=== PATIENT | male | born 1950 | race Caucasian/White ===

== ENCOUNTER 2020-04-03 16:53 | Inpatient (IN) ==
[2020-04-03] MEDS ORDERED: MAGNESIUM HYDROXIDE SUSP 30 ML UDCUP PO PRN (18:22)
[2020-04-03] MEDS ORDERED: LACTULOSE 20 GM/30 ML UDCUP PO PRN (18:22)
[2020-04-03] MEDS ORDERED: chlorproMAZINE 25 MG TABLET PO PRN (18:22)
[2020-04-03] MEDS ORDERED: ACETAMINOPHEN 325 MG TABLET PO PRN (18:22)
[2020-04-03] MEDS ORDERED: PROMETHAZINE INJ 25 MG in SODIUM CHLORIDE 0.9% 50 ML IV PRN (18:22)
[2020-04-03] MEDS ORDERED: MYLANTA/LIDO VISC 2:1 300 ML BOTTLE SWISH/SPIT PRN (18:22)
[2020-04-03] MEDS ORDERED: TEMAZEPAM 7.5 MG CAPSULE PO PRN (18:22)
[2020-04-03] MEDS ORDERED: chlorproMAZINE INJ 50 MG in SODIUM CHLORIDE 0.9% 100 ML IV PRN (18:22)
[2020-04-03] MEDS ORDERED: ONDANSETRON 4 MG/2 ML VIAL IV PRN (18:22)
[2020-04-03] MEDS ORDERED: ALPRAZolam 0.25 MG TABLET PO PRN (18:22)
[2020-04-03] MEDS ORDERED: BENZTROPINE 2 MG/2 ML AMP IV PRN (18:22)
[2020-04-03] MEDS ORDERED: traMADol 50 MG TABLET PO PRN (18:22)
[2020-04-03] MEDS ORDERED: diphenhydrAMINE CAP 25 MG CAPSULE PO PRN (18:22)
[2020-04-03] MEDS ORDERED: MYLANTA/LIDO VISC 2:1 300 ML BOTTLE SWISH/SWAL PRN (18:22)
[2020-04-03] MEDS ORDERED: guaiFENesin 200 MG/10 ML UDCUP PO PRN (18:22)
[2020-04-03] MEDS ORDERED: LOPERAMIDE 2 MG CAPSULE PO PRN ×2 (18:22)
[2020-04-03] MEDS ORDERED: allopurinoL 300 MG TABLET PO ONE (18:28)
[2020-04-03] MEDS ORDERED: DEXAMETHASONE 4 MG TABLET PO ONE (18:29)
[2020-04-03] MEDS: SODIUM CHLORIDE 0.9% 1,000 ML IV SCH (19:07)
[2020-04-03] MEDS ORDERED: ZOLEDRONIC ACID 4 MG in PREMIX 1 EACH IV ONE (20:00)
[2020-04-03] MEDS: ALUMINUM/MAGNES/SIMETH MAX STR 30 ML UDCUP PO PRN (20:40)
[2020-04-04] MEDS: SODIUM CHLORIDE 0.9% 1,000 ML IV SCH ×3 (03:24→20:03)
[2020-04-04 05:21] LABS: Basophils % 0.6 % (0.0-0.8); Hematocrit 38.4 VOL% (42.0-52.0); Immature Granulocytes % 6.1 %; Immature Granulocytes Absolute 0.32 #; Lymphocytes # 0.7 10*3/uL (1.4-4.0); Mean Corpuscular HGB Conc 31.3 GM/DL (32-36); Mean Corpuscular Volume 97.2 FL (87-102); Mean Platelet Volume 10.2 FL (9.6-12.0); Monocytes % 3.1 % (1.7-12.7); Neutrophils % 76.2 % (38.7-73.9); Platelet Count 255 T/CUMM (130-400); Red Blood Count 3.95 MC/CUMM (3.8-5.5); White Blood Count 5.2 T/CUMM (4-12)
[2020-04-04 05:52] LABS: Hypochromasia 1+; Lymphocytes 10 % (20-55); Ovalocytes Slight; Platelet Estimate Adequate; Segmented Neutrophils 89 % (50-85); Total Cells Counted 100
[2020-04-04 06:03] LABS: Albumin 2.6 G/DL (3.4-5.0); Bilirubin,Total 1.2 MG/DL (0.2-1.0); Calcium 11.3 MG/DL (8.5-10.1); Total Protein 6.8 G/DL (6.4-8.3)
[2020-04-04] MEDS ORDERED: oxyCODONE/ACETAMINOPHEN 5-325 MG TABLET PO PRN (08:06)
[2020-04-04] MEDS: ASPIRIN 325 MG TABLET PO SCH (08:40)
[2020-04-04] MEDS ORDERED: DEXAMETHASONE 4 MG TABLET PO SCH (09:00)
[2020-04-04] MEDS ORDERED: ETOPOSIDE 150 MG in SODIUM CHLORIDE 0.9% 500 ML IV SCH (10:00)
[2020-04-04] MEDS: GRANISETRON 1 MG/1 ML VIAL IV SCH (11:15)
[2020-04-04] MEDS: traZODone 50 MG TABLET PO PRN (20:04)
[2020-04-05] MEDS: chlorproMAZINE INJ 25 MG in SODIUM CHLORIDE 0.9% 100 ML IV PRN (02:45)
[2020-04-05] MEDS: SODIUM CHLORIDE 0.9% 1,000 ML IV SCH ×3 (04:37→19:11)
[2020-04-05 05:43] LABS: Basophils % 0.4 % (0.0-0.8); Eosinophils % 0.1 % (0.00-10.9); Hematocrit 30.8 VOL% (42.0-52.0); Hemoglobin 9.6 GM/DL (14.0-18.0); Immature Granulocytes % 1.9 %; Immature Granulocytes Absolute 0.15 #; Lymphocytes # 0.9 10*3/uL (1.4-4.0); Lymphocytes % 11.1 % (21.2-54.2); Mean Corpuscular HGB Conc 31.2 GM/DL (32-36); Mean Corpuscular Volume 97.5 FL (87-102); Mean Platelet Volume 10.4 FL (9.6-12.0); Monocytes % 7.1 % (1.7-12.7); Neutrophils % 79.4 % (38.7-73.9); Platelet Count 218 T/CUMM (130-400); Red Blood Count 3.16 MC/CUMM (3.8-5.5); Red Cell Distribution Width 16.2 % (9.3-17.3); White Blood Count 7.7 T/CUMM (4-12)
[2020-04-05 06:20] LABS: Albumin 2.2 G/DL (3.4-5.0); Bilirubin,Total 1.7 MG/DL (0.2-1.0); Calcium 8.7 MG/DL (8.5-10.1); Osmolality,Calculated 291.6 MOS/KG (273-304); Total Protein 5.5 G/DL (6.4-8.3)
[2020-04-05] MEDS ORDERED: DEXAMETHASONE 10 MG/1 ML VIAL IV ONE (08:34)
[2020-04-05] MEDS: GRANISETRON 1 MG/1 ML VIAL IV SCH ×2 (08:47→09:04)
[2020-04-05] MEDS ORDERED: CARBOplatin 400 MG in SODIUM CHLORIDE 0.9% 250 ML IV ONE (09:00)
[2020-04-05] MEDS ORDERED: DEXAMETHASONE 10 MG/1 ML VIAL IV SCH (09:00)
[2020-04-05] MEDS ORDERED: ETOPOSIDE 150 MG in SODIUM CHLORIDE 0.9% 500 ML IV ONE (09:00)
[2020-04-05] MEDS ORDERED: GRANISETRON 1 MG/1 ML VIAL IV SCH (09:00)
[2020-04-05] MEDS: ASPIRIN 325 MG TABLET PO SCH (09:04)
[2020-04-05] MEDS: DEXAMETHASONE INJ 20 MG in SODIUM CHLORIDE 0.9% 50 ML IV SCH (09:05)
[2020-04-05] MEDS: ALUMINUM/MAGNES/SIMETH MAX STR 30 ML UDCUP PO PRN (17:45)
[2020-04-06] MEDS: SODIUM CHLORIDE 0.9% 1,000 ML IV SCH (03:16)
[2020-04-06 06:14] LABS: Basophils % 0.3 % (0.0-0.8); Eosinophils % 0.1 % (0.00-10.9); Hematocrit 36.2 VOL% (42.0-52.0); Hemoglobin 11.4 GM/DL (14.0-18.0); Immature Granulocytes % 1.6 %; Immature Granulocytes Absolute 0.12 #; Lymphocytes # 0.8 10*3/uL (1.4-4.0); Lymphocytes % 11.1 % (21.2-54.2); Mean Corpuscular HGB Conc 31.5 GM/DL (32-36); Mean Corpuscular Volume 97.3 FL (87-102); Mean Platelet Volume 10.2 FL (9.6-12.0); Monocytes % 6.7 % (1.7-12.7); Neutrophils % 80.2 % (38.7-73.9); Platelet Count 219 T/CUMM (130-400); Red Blood Count 3.72 MC/CUMM (3.8-5.5); Red Cell Distribution Width 16.4 % (9.3-17.3); White Blood Count 7.5 T/CUMM (4-12)
[2020-04-06 06:40] LABS: Albumin 2.4 G/DL (3.4-5.0); Bilirubin,Total 0.8 MG/DL (0.2-1.0); Calcium 8.2 MG/DL (8.5-10.1); Osmolality,Calculated 293.4 MOS/KG (273-304); Total Protein 6.2 G/DL (6.4-8.3)
[2020-04-06] MEDS ORDERED: LANSOPRAZOLE ODT 30 MG TABLET PO SCH (10:00)
[2020-04-06] MEDS: GRANISETRON 1 MG/1 ML VIAL IV SCH (10:02)
[2020-04-06] MEDS: ASPIRIN 325 MG TABLET PO SCH (10:02)
[2020-04-06] MEDS: DEXAMETHASONE INJ 20 MG in SODIUM CHLORIDE 0.9% 50 ML IV SCH ×2 (10:23→21:58)
[2020-04-06] MEDS ORDERED: ETOPOSIDE 150 MG in SODIUM CHLORIDE 0.9% 500 ML IV ONE ×2 (12:00→15:00)
[2020-04-06] MEDS: DEXT 5% NACL 0.45% KCL 20 MEQ 20 MEQ/1,000 ML BAG IV SCH ×2 (14:26→23:22)
[2020-04-06] MEDS: OMEPRAZOLE ODT 20 MG TABLET PO SCH ×2 (14:26→21:57)
[2020-04-06] MEDS: CLOTRIMAZOLE 10 MG TROCHE PO SCH ×3 (14:26→21:57)
[2020-04-07] MEDS: DEXT 5% NACL 0.45% KCL 20 MEQ 20 MEQ/1,000 ML BAG IV SCH ×4 (00:30→22:05)
[2020-04-07 07:20] LABS: Basophils % 0.2 % (0.0-0.8); Hematocrit 35.7 VOL% (42.0-52.0); Immature Granulocytes % 1.7 %; Immature Granulocytes Absolute 0.09 #; Lymphocytes # 0.3 10*3/uL (1.4-4.0); Lymphocytes % 6.3 % (21.2-54.2); Mean Corpuscular HGB Conc 30.8 GM/DL (32-36); Mean Corpuscular Volume 98.9 FL (87-102); Monocytes % 1.7 % (1.7-12.7); Neutrophils % 90.1 % (38.7-73.9); Platelet Count 215 T/CUMM (130-400); Red Blood Count 3.61 MC/CUMM (3.8-5.5); Red Cell Distribution Width 16.4 % (9.3-17.3); White Blood Count 5.4 T/CUMM (4-12)
[2020-04-07 07:55] LABS: Albumin 2.3 G/DL (3.4-5.0); Bilirubin,Total 0.5 MG/DL (0.2-1.0); Calcium 7.5 MG/DL (8.5-10.1); Osmolality,Calculated 295.6 MOS/KG (273-304); Total Protein 6.1 G/DL (6.4-8.3)
[2020-04-07] MEDS: OMEPRAZOLE ODT 20 MG TABLET PO SCH ×2 (10:00→20:29)
[2020-04-07] MEDS: DEXAMETHASONE INJ 20 MG in SODIUM CHLORIDE 0.9% 50 ML IV SCH ×2 (10:00→20:29)
[2020-04-07] MEDS: ASPIRIN 325 MG TABLET PO SCH (10:00)
[2020-04-07] MEDS: CLOTRIMAZOLE 10 MG TROCHE PO SCH ×4 (10:00→20:29)
[2020-04-07] MEDS: GRANISETRON 1 MG/1 ML VIAL IV SCH (10:00)
[2020-04-07] MEDS: guaiFENesin 200 MG/10 ML UDCUP PO SCH ×4 (10:00→20:29)
[2020-04-08] MEDS: DEXT 5% NACL 0.45% KCL 20 MEQ 20 MEQ/1,000 ML BAG IV SCH ×3 (03:52→17:08)
[2020-04-08 06:18] LABS: Hematocrit 33.7 VOL% (42.0-52.0); Hemoglobin 10.4 GM/DL (14.0-18.0); Immature Granulocytes % 1.5 %; Immature Granulocytes Absolute 0.09 #; Lymphocytes # 0.4 10*3/uL (1.4-4.0); Lymphocytes % 7.2 % (21.2-54.2); Mean Corpuscular HGB Conc 30.9 GM/DL (32-36); Mean Corpuscular Volume 99.4 FL (87-102); Mean Platelet Volume 10.3 FL (9.6-12.0); Monocytes % 1.2 % (1.7-12.7); Neutrophils % 90.1 % (38.7-73.9); Platelet Count 188 T/CUMM (130-400); Red Blood Count 3.39 MC/CUMM (3.8-5.5); White Blood Count 5.9 T/CUMM (4-12)
[2020-04-08 07:05] LABS: Albumin 2.3 G/DL (3.4-5.0); Bilirubin,Total 0.6 MG/DL (0.2-1.0); Calcium 7.4 MG/DL (8.5-10.1); Osmolality,Calculated 289.7 MOS/KG (273-304); Total Protein 5.7 G/DL (6.4-8.3)
[2020-04-08] MEDS: guaiFENesin 200 MG/10 ML UDCUP PO SCH ×4 (08:10→20:03)
[2020-04-08] MEDS: OMEPRAZOLE ODT 20 MG TABLET PO SCH ×2 (08:10→20:03)
[2020-04-08] MEDS: ASPIRIN 325 MG TABLET PO SCH (08:11)
[2020-04-08] MEDS: CLOTRIMAZOLE 10 MG TROCHE PO SCH ×4 (08:11→20:03)
[2020-04-08] MEDS: GRANISETRON 1 MG/1 ML VIAL IV SCH (08:11)
[2020-04-08] MEDS: DEXAMETHASONE INJ 20 MG in SODIUM CHLORIDE 0.9% 50 ML IV SCH ×2 (08:11→20:04)
[2020-04-09 06:37] LABS: Hematocrit 34.6 VOL% (42.0-52.0); Hemoglobin 10.8 GM/DL (14.0-18.0); Immature Granulocytes % 0.9 %; Immature Granulocytes Absolute 0.06 #; Lymphocytes # 0.5 10*3/uL (1.4-4.0); Lymphocytes % 7.9 % (21.2-54.2); Mean Corpuscular HGB Conc 31.2 GM/DL (32-36); Mean Corpuscular Volume 97.7 FL (87-102); Mean Platelet Volume 10.4 FL (9.6-12.0); Monocytes % 0.4 % (1.7-12.7); Neutrophils % 90.8 % (38.7-73.9); Platelet Count 213 T/CUMM (130-400); Red Blood Count 3.54 MC/CUMM (3.8-5.5); Red Cell Distribution Width 15.9 % (9.3-17.3); White Blood Count 6.7 T/CUMM (4-12)
[2020-04-09 07:09] LABS: Albumin 2.6 G/DL (3.4-5.0); Bilirubin,Total 1.2 MG/DL (0.2-1.0); Calcium 7.7 MG/DL (8.5-10.1); Osmolality,Calculated 281.4 MOS/KG (273-304); Total Protein 6.3 G/DL (6.4-8.3)
[2020-04-09 07:36] LABS: Anisocytosis 2+; Band Neutrophils 1 % (0-10); Burr Cells Few; Lymphocytes 6 % (20-55); Macrocytosis 1+; Nucleated Red Blood Cells 1 (0-5); Platelet Estimate Normal; Segmented Neutrophils 93 % (50-85); Total Cells Counted 100
[2020-04-09] MEDS: DEXAMETHASONE INJ 20 MG in SODIUM CHLORIDE 0.9% 50 ML IV SCH ×2 (08:54→20:45)
[2020-04-09] MEDS: ASPIRIN 325 MG TABLET PO SCH (08:55)
[2020-04-09] MEDS: CLOTRIMAZOLE 10 MG TROCHE PO SCH ×4 (08:55→20:45)
[2020-04-09] MEDS: GRANISETRON 1 MG/1 ML VIAL IV SCH (08:55)
[2020-04-09] MEDS: OMEPRAZOLE ODT 20 MG TABLET PO SCH ×2 (08:55→20:45)
[2020-04-09] MEDS: guaiFENesin 200 MG/10 ML UDCUP PO SCH ×4 (08:55→20:45)
[2020-04-09] MEDS: DEXT 5% NACL 0.45% KCL 20 MEQ 20 MEQ/1,000 ML BAG IV SCH (16:43)
[2020-04-10 06:31] LABS: Basophils % 0.1 % (0.0-0.8); Hemoglobin 10.8 GM/DL (14.0-18.0); Immature Granulocytes % 1.8 %; Immature Granulocytes Absolute 0.12 #; Lymphocytes # 0.5 10*3/uL (1.4-4.0); Lymphocytes % 6.7 % (21.2-54.2); Mean Corpuscular HGB Conc 31.8 GM/DL (32-36); Mean Corpuscular Volume 95.8 FL (87-102); Mean Platelet Volume 10.4 FL (9.6-12.0); Monocytes % 0.4 % (1.7-12.7); Platelet Count 193 T/CUMM (130-400); Red Blood Count 3.55 MC/CUMM (3.8-5.5); Red Cell Distribution Width 15.5 % (9.3-17.3); White Blood Count 6.7 T/CUMM (4-12)
[2020-04-10 07:11] LABS: Anisocytosis 1+; Band Neutrophils 5 % (0-10); Lymphocytes 6 % (20-55); Platelet Estimate Normal; Segmented Neutrophils 87 % (50-85); Total Cells Counted 100
[2020-04-10 07:12] LABS: Hypersegmented Neutrophil Few
[2020-04-10] MEDS: GRANISETRON 1 MG/1 ML VIAL IV SCH (10:12)
[2020-04-10] MEDS: CLOTRIMAZOLE 10 MG TROCHE PO SCH ×4 (10:15→20:59)
[2020-04-10] MEDS: guaiFENesin 200 MG/10 ML UDCUP PO SCH ×4 (10:15→20:59)
[2020-04-10] MEDS: OMEPRAZOLE ODT 20 MG TABLET PO SCH ×2 (10:15→20:59)
[2020-04-10] MEDS: ASPIRIN 325 MG TABLET PO SCH (10:15)
[2020-04-10] MEDS: DEXAMETHASONE INJ 20 MG in SODIUM CHLORIDE 0.9% 50 ML IV SCH ×2 (10:19→20:59)
[2020-04-10 12:25] LABS: Calcium 7.7 MG/DL (8.5-10.1)
[2020-04-10 12:26] LABS: Albumin 2.6 G/DL (3.4-5.0); Bilirubin,Total 0.95 MG/DL (0.2-1.0); Osmolality,Calculated 274.8 MOS/KG (273-304); Total Protein 6.5 G/DL (6.4-8.3)
[2020-04-10] MEDS: DEXT 5% NACL 0.45% KCL 20 MEQ 20 MEQ/1,000 ML BAG IV SCH (16:05)
[2020-04-11 06:08] LABS: Basophils % 0.1 % (0.0-0.8); Hematocrit 32.1 VOL% (42.0-52.0); Hemoglobin 10.4 GM/DL (14.0-18.0); Immature Granulocytes % 2.1 %; Immature Granulocytes Absolute 0.15 #; Lymphocytes # 0.4 10*3/uL (1.4-4.0); Lymphocytes % 6.1 % (21.2-54.2); Mean Corpuscular HGB Conc 32.4 GM/DL (32-36); Mean Platelet Volume 11.1 FL (9.6-12.0); Monocytes % 0.4 % (1.7-12.7); Neutrophils % 91.3 % (38.7-73.9); Platelet Count 202 T/CUMM (130-400); Red Blood Count 3.38 MC/CUMM (3.8-5.5); Red Cell Distribution Width 15.8 % (9.3-17.3); White Blood Count 7.1 T/CUMM (4-12)
[2020-04-11 06:48] LABS: Band Neutrophils 1 % (0-10); Hypochromasia 1+; Lymphocytes 5 % (20-55); Ovalocytes Slight; Platelet Estimate Adequate; Segmented Neutrophils 94 % (50-85); Total Cells Counted 100
[2020-04-11 07:58] LABS: Albumin 2.6 G/DL (3.4-5.0); Bilirubin,Total 0.7 MG/DL (0.2-1.0); Calcium 7.4 MG/DL (8.5-10.1); Osmolality,Calculated 279.4 MOS/KG (273-304); Total Protein 6.4 G/DL (6.4-8.3)
[2020-04-11] MEDS: guaiFENesin 200 MG/10 ML UDCUP PO SCH ×4 (10:19→20:41)
[2020-04-11] MEDS: DEXAMETHASONE INJ 20 MG in SODIUM CHLORIDE 0.9% 50 ML IV SCH ×2 (10:19→20:41)
[2020-04-11] MEDS: CLOTRIMAZOLE 10 MG TROCHE PO SCH ×4 (10:19→20:40)
[2020-04-11] MEDS: OMEPRAZOLE ODT 20 MG TABLET PO SCH ×2 (10:19→20:40)
[2020-04-11] MEDS: ASPIRIN 325 MG TABLET PO SCH (10:19)
[2020-04-11] MEDS: DEXT 5% NACL 0.45% KCL 20 MEQ 20 MEQ/1,000 ML BAG IV SCH (14:08)
[2020-04-11] MEDS: CYCLOBENZAPRINE 10 MG TABLET PO PRN (20:40)
[2020-04-11] MEDS: traZODone 50 MG TABLET PO PRN (20:40)
[2020-04-12 06:08] LABS: Eosinophils # 0.3 10*3/uL (0.0-0.87); Eosinophils % 4.4 % (0.00-10.9); Hemoglobin 10.1 GM/DL (14.0-18.0); Immature Granulocytes % 1.3 %; Immature Granulocytes Absolute 0.08 #; Lymphocytes # 1.1 10*3/uL (1.4-4.0); Lymphocytes % 19.2 % (21.2-54.2); Mean Corpuscular HGB Conc 32.6 GM/DL (32-36); Mean Corpuscular Volume 93.7 FL (87-102); Mean Platelet Volume 10.7 FL (9.6-12.0); Monocytes % 0.7 % (1.7-12.7); Neutrophils % 74.4 % (38.7-73.9); Platelet Count 156 T/CUMM (130-400); Red Blood Count 3.31 MC/CUMM (3.8-5.5); Red Cell Distribution Width 15.6 % (9.3-17.3)
[2020-04-12 06:38] LABS: Albumin 2.5 G/DL (3.4-5.0); Bilirubin,Total 0.6 MG/DL (0.2-1.0); Calcium 7.4 MG/DL (8.5-10.1); Osmolality,Calculated 281.1 MOS/KG (273-304); Total Protein 5.8 G/DL (6.4-8.3)
[2020-04-12 06:41] LABS: Hypochromasia Slight; Ovalocytes Slight; Platelet Estimate Adequate
[2020-04-12] MEDS: ASPIRIN 325 MG TABLET PO SCH (08:52)
[2020-04-12] MEDS: guaiFENesin 200 MG/10 ML UDCUP PO SCH ×4 (08:52→20:01)
[2020-04-12] MEDS: OMEPRAZOLE ODT 20 MG TABLET PO SCH ×2 (08:52→20:01)
[2020-04-12] MEDS: CLOTRIMAZOLE 10 MG TROCHE PO SCH ×4 (08:52→20:01)
[2020-04-12] MEDS: DEXAMETHASONE INJ 20 MG in SODIUM CHLORIDE 0.9% 50 ML IV SCH ×2 (08:52→21:15)
[2020-04-12] MEDS: DEXT 5% NACL 0.45% KCL 20 MEQ 20 MEQ/1,000 ML BAG IV SCH (15:14)
[2020-04-13 06:16] LABS: Basophils % 0.3 % (0.0-0.8); Hematocrit 31.8 VOL% (42.0-52.0); Hemoglobin 10.4 GM/DL (14.0-18.0); Immature Granulocytes % 0.9 %; Immature Granulocytes Absolute 0.03 #; Lymphocytes # 0.3 10*3/uL (1.4-4.0); Lymphocytes % 8.1 % (21.2-54.2); Mean Corpuscular HGB Conc 32.7 GM/DL (32-36); Mean Platelet Volume 10.6 FL (9.6-12.0); Monocytes % 1.2 % (1.7-12.7); Neutrophils % 89.5 % (38.7-73.9); Platelet Count 156 T/CUMM (130-400); Red Blood Count 3.42 MC/CUMM (3.8-5.5); Red Cell Distribution Width 15.2 % (9.3-17.3); White Blood Count 3.4 T/CUMM (4-12)
[2020-04-13 06:45] LABS: Albumin 2.7 G/DL (3.4-5.0); Bilirubin,Total 1.7 MG/DL (0.2-1.0); Calcium 7.5 MG/DL (8.5-10.1); Osmolality,Calculated 277.5 MOS/KG (273-304); Total Protein 6.1 G/DL (6.4-8.3)
[2020-04-13] MEDS: DEXAMETHASONE INJ 20 MG in SODIUM CHLORIDE 0.9% 50 ML IV SCH ×2 (08:46→21:15)
[2020-04-13] MEDS: ASPIRIN 325 MG TABLET PO SCH (08:46)
[2020-04-13] MEDS: OMEPRAZOLE ODT 20 MG TABLET PO SCH ×2 (08:46→20:42)
[2020-04-13] MEDS: CLOTRIMAZOLE 10 MG TROCHE PO SCH ×4 (08:46→20:42)
[2020-04-13] MEDS: guaiFENesin 200 MG/10 ML UDCUP PO SCH ×4 (08:46→20:42)
[2020-04-13] MEDS: FILGRASTIM-SNDZ 300 MCG/0.5 ML SYRINGE SUBCUT SCH (09:01)
[2020-04-13] MEDS: ALUMINUM/MAGNES/SIMETH MAX STR 30 ML UDCUP PO PRN (14:41)
[2020-04-13] MEDS: traZODone 50 MG TABLET PO PRN (20:42)
[2020-04-14 06:16] LABS: Basophils % 0.1 % (0.0-0.8); Hematocrit 33.7 VOL% (42.0-52.0); Immature Granulocytes % 8.7 %; Immature Granulocytes Absolute 0.77 #; Lymphocytes # 0.4 10*3/uL (1.4-4.0); Lymphocytes % 4.3 % (21.2-54.2); Mean Corpuscular HGB Conc 32.6 GM/DL (32-36); Mean Corpuscular Volume 93.9 FL (87-102); Mean Platelet Volume 10.9 FL (9.6-12.0); Monocytes % 2.6 % (1.7-12.7); Neutrophils % 84.3 % (38.7-73.9); Platelet Count 153 T/CUMM (130-400); Red Blood Count 3.59 MC/CUMM (3.8-5.5); Red Cell Distribution Width 15.4 % (9.3-17.3); White Blood Count 8.8 T/CUMM (4-12)
[2020-04-14 06:59] LABS: Albumin 2.8 G/DL (3.4-5.0); Bilirubin,Total 0.7 MG/DL (0.2-1.0); Calcium 7.6 MG/DL (8.5-10.1); Osmolality,Calculated 279.5 MOS/KG (273-304); Total Protein 6.3 G/DL (6.4-8.3)
[2020-04-14 07:43] LABS: Band Neutrophils 5 % (0-10); Hypochromasia Slight; Lymphocytes 6 % (20-55); Segmented Neutrophils 87 % (50-85); Total Cells Counted 100
[2020-04-14 07:44] LABS: Anisocytosis 1+; Ovalocytes Slight; Platelet Estimate Adequate; Polychromasia Slight
[2020-04-14] MEDS: ASPIRIN 325 MG TABLET PO SCH (08:41)
[2020-04-14] MEDS: OMEPRAZOLE ODT 20 MG TABLET PO SCH ×2 (08:41→20:59)
[2020-04-14] MEDS: CLOTRIMAZOLE 10 MG TROCHE PO SCH ×4 (08:41→20:59)
[2020-04-14] MEDS: FILGRASTIM-SNDZ 300 MCG/0.5 ML SYRINGE SUBCUT SCH (08:41)
[2020-04-14] MEDS: DEXAMETHASONE INJ 20 MG in SODIUM CHLORIDE 0.9% 50 ML IV SCH ×2 (08:41→21:10)
[2020-04-14] MEDS: ALUMINUM/MAGNES/SIMETH MAX STR 30 ML UDCUP PO PRN (09:43)
[2020-04-14] MEDS: guaiFENesin 200 MG/10 ML UDCUP PO SCH ×3 (13:29→20:59)
[2020-04-14] MEDS: DEXT 5% NACL 0.45% KCL 20 MEQ 20 MEQ/1,000 ML BAG IV SCH (17:40)
[2020-04-15 07:30] LABS: Basophils % 0.2 % (0.0-0.8); Hematocrit 34.8 VOL% (42.0-52.0); Hemoglobin 11.2 GM/DL (14.0-18.0); Lymphocytes # 0.5 10*3/uL (1.4-4.0); Lymphocytes % 8.2 % (21.2-54.2); Mean Corpuscular HGB Conc 32.2 GM/DL (32-36); Mean Corpuscular Volume 94.3 FL (87-102); Mean Platelet Volume 10.5 FL (9.6-12.0); Monocytes % 4.9 % (1.7-12.7); NRBC # 0.04 10*3/uL; Neutrophils % 79.7 % (38.7-73.9); Platelet Count 146 T/CUMM (130-400); Red Blood Count 3.69 MC/CUMM (3.8-5.5); Red Cell Distribution Width 16.1 % (9.3-17.3); White Blood Count 5.7 T/CUMM (4-12)
[2020-04-15 07:54] LABS: Lymphocytes 9 % (20-55); Nucleated Red Blood Cells 1 (0-5); Platelet Estimate Adequate; Segmented Neutrophils 86 % (50-85); Total Cells Counted 100
[2020-04-15 07:55] LABS: Hypochromasia 1+; Ovalocytes Slight
[2020-04-15 08:02] LABS: Albumin 2.7 G/DL (3.4-5.0); Bilirubin,Total 0.7 MG/DL (0.2-1.0); Calcium 7.6 MG/DL (8.5-10.1); Osmolality,Calculated 273.8 MOS/KG (273-304); Total Protein 6.3 G/DL (6.4-8.3)
[2020-04-15] MEDS: FILGRASTIM-SNDZ 300 MCG/0.5 ML SYRINGE SUBCUT SCH (08:32)
[2020-04-15] MEDS: CLOTRIMAZOLE 10 MG TROCHE PO SCH ×4 (09:23→20:37)
[2020-04-15] MEDS: DEXAMETHASONE INJ 20 MG in SODIUM CHLORIDE 0.9% 50 ML IV SCH ×2 (09:23→20:01)
[2020-04-15] MEDS: ASPIRIN 325 MG TABLET PO SCH (09:23)
[2020-04-15] MEDS: OMEPRAZOLE ODT 20 MG TABLET PO SCH ×2 (09:23→20:37)
[2020-04-15] MEDS: guaiFENesin 200 MG/10 ML UDCUP PO SCH ×4 (09:23→20:36)
[2020-04-15] MEDS: DEXT 5% NACL 0.45% KCL 20 MEQ 20 MEQ/1,000 ML BAG IV SCH ×2 (17:34→21:17)
[2020-04-15] MEDS: traZODone 50 MG TABLET PO PRN (20:37)
[2020-04-16 04:36] LABS: Hematocrit 30.2 VOL% (42.0-52.0); Hemoglobin 9.6 GM/DL (14.0-18.0); Immature Granulocytes % 4.5 %; Immature Granulocytes Absolute 0.13 #; Lymphocytes # 0.3 10*3/uL (1.4-4.0); Lymphocytes % 9.8 % (21.2-54.2); Mean Corpuscular HGB Conc 31.8 GM/DL (32-36); Mean Corpuscular Volume 95.9 FL (87-102); Monocytes % 7.3 % (1.7-12.7); NRBC # 0.05 10*3/uL; Neutrophils % 78.4 % (38.7-73.9); Platelet Count 124 T/CUMM (130-400); Red Blood Count 3.15 MC/CUMM (3.8-5.5); Red Cell Distribution Width 16.2 % (9.3-17.3); White Blood Count 2.9 T/CUMM (4-12)
[2020-04-16 05:16] LABS: Hypochromasia 1+; Lymphocytes 7 % (20-55); Segmented Neutrophils 87 % (50-85); Total Cells Counted 100
[2020-04-16 05:20] LABS: Albumin 2.3 G/DL (3.4-5.0); Bilirubin,Total 0.6 MG/DL (0.2-1.0); Calcium 6.3 MG/DL (8.5-10.1)
[2020-04-16] MEDS: OMEPRAZOLE ODT 20 MG TABLET PO SCH ×2 (08:46→20:23)
[2020-04-16] MEDS: CLOTRIMAZOLE 10 MG TROCHE PO SCH ×4 (08:47→20:23)
[2020-04-16] MEDS: guaiFENesin 200 MG/10 ML UDCUP PO SCH ×4 (08:47→20:23)
[2020-04-16] MEDS: ASPIRIN 325 MG TABLET PO SCH (08:47)
[2020-04-16] MEDS: FILGRASTIM-SNDZ 300 MCG/0.5 ML SYRINGE SUBCUT SCH (08:49)
[2020-04-16] MEDS: DEXAMETHASONE INJ 20 MG in SODIUM CHLORIDE 0.9% 50 ML IV SCH ×2 (09:55→20:02)
[2020-04-16] MEDS: CYCLOBENZAPRINE 10 MG TABLET PO PRN (12:33)
[2020-04-16] MEDS ORDERED: oxyCODONE/ACETAMINOPHEN 5-325 MG TABLET PO PRN (16:06)
[2020-04-16] MEDS: MORPHINE 4 MG/1 ML VIAL IV PRN ×2 (16:16→22:01)
[2020-04-16] MEDS: DEXT 5% NACL 0.45% KCL 20 MEQ 20 MEQ/1,000 ML BAG IV SCH (20:02)
[2020-04-17 05:45] LABS: Hemoglobin 10.9 GM/DL (14.0-18.0); Immature Granulocytes % 1.3 %; Immature Granulocytes Absolute 0.02 #; Lymphocytes # 0.2 10*3/uL (1.4-4.0); Mean Corpuscular HGB Conc 32.1 GM/DL (32-36); Mean Corpuscular Volume 95.5 FL (87-102); Mean Platelet Volume 10.7 FL (9.6-12.0); Monocytes % 16.7 % (1.7-12.7); NRBC # 0.02 10*3/uL; Platelet Count 142 T/CUMM (130-400); Red Blood Count 3.56 MC/CUMM (3.8-5.5); Red Cell Distribution Width 16.6 % (9.3-17.3); White Blood Count 1.5 T/CUMM (4-12)
[2020-04-17 06:12] LABS: Albumin 2.6 G/DL (3.4-5.0); Bilirubin,Total 0.9 MG/DL (0.2-1.0); Calcium 7.7 MG/DL (8.5-10.1); Osmolality,Calculated 282.3 MOS/KG (273-304); Total Protein 5.9 G/DL (6.4-8.3)
[2020-04-17 06:32] LABS: Atypical Lymphocytes Few; Lymphocytes 19 % (20-55); Nucleated Red Blood Cells 3 (0-5); Platelet Estimate Adequate; Segmented Neutrophils 66 % (50-85); Total Cells Counted 100
[2020-04-17 06:33] LABS: Hypochromasia 1+
[2020-04-17 06:34] LABS: Ovalocytes Slight
[2020-04-17] MEDS: OMEPRAZOLE ODT 20 MG TABLET PO SCH ×2 (08:44→21:26)
[2020-04-17] MEDS: CLOTRIMAZOLE 10 MG TROCHE PO SCH ×4 (08:44→21:26)
[2020-04-17] MEDS: guaiFENesin 200 MG/10 ML UDCUP PO SCH ×4 (08:45→21:26)
[2020-04-17] MEDS: ASPIRIN 325 MG TABLET PO SCH (08:49)
[2020-04-17] MEDS: DEXAMETHASONE INJ 20 MG in SODIUM CHLORIDE 0.9% 50 ML IV SCH ×2 (09:39→21:26)
[2020-04-17] MEDS: FILGRASTIM-SNDZ 300 MCG/0.5 ML SYRINGE SUBCUT SCH (09:39)
[2020-04-17] MEDS: MORPHINE 4 MG/1 ML VIAL IV PRN (14:26)
[2020-04-17] MEDS: DEXT 5% NACL 0.45% KCL 20 MEQ 20 MEQ/1,000 ML BAG IV SCH (18:21)
[2020-04-18 05:28] LABS: Basophils % 0.5 % (0.0-0.8); Hematocrit 36.6 VOL% (42.0-52.0); Hemoglobin 11.5 GM/DL (14.0-18.0); Immature Granulocytes % 0.2 %; Immature Granulocytes Absolute 0.01 #; Lymphocytes # 0.2 10*3/uL (1.4-4.0); Mean Corpuscular HGB Conc 31.4 GM/DL (32-36); Mean Corpuscular Volume 97.1 FL (87-102); Mean Platelet Volume 10.5 FL (9.6-12.0); Monocytes % 14.4 % (1.7-12.7); NRBC # 0.03 10*3/uL; Neutrophils % 79.9 % (38.7-73.9); Platelet Count 155 T/CUMM (130-400); Red Blood Count 3.77 MC/CUMM (3.8-5.5); White Blood Count 4.2 T/CUMM (4-12)
[2020-04-18 05:45] LABS: Albumin 2.7 G/DL (3.4-5.0); Bilirubin,Total 1.1 MG/DL (0.2-1.0); Osmolality,Calculated 279.5 MOS/KG (273-304); Total Protein 6.1 G/DL (6.4-8.3)
[2020-04-18 06:03] LABS: Band Neutrophils 8 % (0-10); Hypochromasia Slight; Lymphocytes 6 % (20-55); Metamyelocytes 2 %; Segmented Neutrophils 74 % (50-85); Total Cells Counted 100
[2020-04-18 06:04] LABS: Anisocytosis 1+; Platelet Estimate Adequate; Polychromasia Slight
[2020-04-18 06:05] LABS: Ovalocytes Few
[2020-04-18] MEDS: FILGRASTIM-SNDZ 300 MCG/0.5 ML SYRINGE SUBCUT SCH (08:28)
[2020-04-18] MEDS: ASPIRIN 325 MG TABLET PO SCH (08:29)
[2020-04-18] MEDS: guaiFENesin 200 MG/10 ML UDCUP PO SCH ×4 (08:29→21:28)
[2020-04-18] MEDS: DEXAMETHASONE INJ 20 MG in SODIUM CHLORIDE 0.9% 50 ML IV SCH ×2 (08:29→21:28)
[2020-04-18] MEDS: OMEPRAZOLE ODT 20 MG TABLET PO SCH ×2 (08:30→21:28)
[2020-04-18] MEDS: CLOTRIMAZOLE 10 MG TROCHE PO SCH ×4 (08:30→21:28)
[2020-04-18] MEDS: DEXT 5% NACL 0.45% KCL 20 MEQ 20 MEQ/1,000 ML BAG IV SCH (09:41)
[2020-04-18] MEDS: traZODone 50 MG TABLET PO PRN (21:28)
[2020-04-18] MEDS: MORPHINE 4 MG/1 ML VIAL IV PRN (21:28)
[2020-04-19 06:08] LABS: Basophils % 0.1 % (0.0-0.8); Hematocrit 35.5 VOL% (42.0-52.0); Hemoglobin 11.5 GM/DL (14.0-18.0); Immature Granulocytes % 2.2 %; Immature Granulocytes Absolute 0.23 #; Lymphocytes # 0.3 10*3/uL (1.4-4.0); Lymphocytes % 3.1 % (21.2-54.2); Mean Corpuscular HGB Conc 32.4 GM/DL (32-36); Mean Corpuscular Volume 96.5 FL (87-102); Mean Platelet Volume 10.6 FL (9.6-12.0); Monocytes % 6.4 % (1.7-12.7); Neutrophils % 88.2 % (38.7-73.9); Platelet Count 156 T/CUMM (130-400); Red Blood Count 3.68 MC/CUMM (3.8-5.5); Red Cell Distribution Width 17.4 % (9.3-17.3); White Blood Count 10.4 T/CUMM (4-12)
[2020-04-19] MEDS: DEXT 5% NACL 0.45% KCL 20 MEQ 20 MEQ/1,000 ML BAG IV SCH (06:29)
[2020-04-19 06:38] LABS: Albumin 2.5 G/DL (3.4-5.0); Bilirubin,Total 0.8 MG/DL (0.2-1.0); Calcium 7.8 MG/DL (8.5-10.1); Osmolality,Calculated 277.7 MOS/KG (273-304); Total Protein 5.8 G/DL (6.4-8.3)
[2020-04-19 06:41] LABS: Band Neutrophils 3 % (0-10); Hypochromasia Slight; Lymphocytes 5 % (20-55); Ovalocytes Slight; Platelet Estimate Adequate; Segmented Neutrophils 86 % (50-85); Total Cells Counted 100
[2020-04-19] MEDS: DEXAMETHASONE INJ 20 MG in SODIUM CHLORIDE 0.9% 50 ML IV SCH (10:02)
[2020-04-19] MEDS: OMEPRAZOLE ODT 20 MG TABLET PO SCH (10:03)
[2020-04-19] MEDS: FILGRASTIM-SNDZ 300 MCG/0.5 ML SYRINGE SUBCUT SCH (10:03)
[2020-04-19] MEDS: guaiFENesin 200 MG/10 ML UDCUP PO SCH ×2 (10:03→13:18)
[2020-04-19] MEDS: ASPIRIN 325 MG TABLET PO SCH (10:03)
[2020-04-19] MEDS: CLOTRIMAZOLE 10 MG TROCHE PO SCH ×2 (10:03→13:17)
[2020-04-19] MEDS ORDERED: HEPARIN LOCK FLUSH 500 UNIT/5 ML SYRINGE IV ONE (11:52)
[2020-04-19 13:12] VITALS: BP 96/53
== END 2020-04-19 13:01 | disposition home health service (06) | DRG 55 ==
LOC: N.4E
PROVIDERS: ADMIT Specialist; ATTEND Specialist